=== PATIENT | male | born 1960 | race African-American/Black ===

== ENCOUNTER 2021-04-20 13:29 | Inpatient (IN) | payer MEDICAID ==
[~2021-04-20] VITALS: Ht 175.3 cm; Wt 71.0 kg
[2021-04-20] MEDS ORDERED: SODIUM CHLORIDE 0.9% 1,000 ML IV ONE (14:00)
[2021-04-20] MEDS ORDERED: MORPHINE SULFATE 4 MG/ML CPJ (NOT FOR IM USE) IV ONE (14:30)
[2021-04-20] MEDS ORDERED: ONDANSETRON HCL 4MG/2ML INJ IV ONE (14:30)
[2021-04-20 14:33] LABS: BASOPHILS % 0.4 % (0.0-2.0); EOSINOPHILS % 1.2 % (0.0-5.0); HEMATOCRIT. 27.1 % (42.0-52.0); HEMOGLOBIN. 9.3 g/dL (14.0-18.0); LYMPHOCYTES % 25.2 % (20.0-50.0); MEAN CORPUSCULAR HEMOGLOBIN 27.7 pg (28.0-32.0); MEAN CORPUSCULAR VOLUME 80.8 fL (80.0-94.0); MEAN PLATELET VOLUME 6.4 fl (7.4-10.4); MONOCYTES % 11.4 % (2.0-8.0); NEUTROPHILS % 61.8 % (40.0-76.0); PLATELET 633 x1000/uL (130-400); RED BLOOD CELL COUNT 3.36 mill/uL (4.7-6.1); RED CELL DISTRIBUTION WIDTH 15.5 % (11.6-14.6)
[2021-04-20 14:39] LABS: CHLORIDE 97 mEq/L (98-107)
[2021-04-20] MEDS ORDERED: ASPIRIN 325MG EC TABLET PO ONE (15:45)
[2021-04-20] MEDS ORDERED: MORPHINE SULFATE 2 MG/ML CPJ (NOT FOR IM USE) IV ONE (18:30)
[2021-04-20] MEDS ORDERED: HEPARIN 25,000 UNITS PREMIX 250 ML IV SCH (18:45)
[2021-04-20] MEDS ORDERED: HEPARIN BOLUS PRN aPTT <36 IV (18:45)
[2021-04-20] MEDS ORDERED: HEPARIN BOLUS PRN aPTT 37-44 IV (18:45)
[2021-04-20] MEDS ORDERED: HEPARIN 80 UNITS/KG BOLUS IV NR (19:15)
[2021-04-20] MEDS ORDERED: IOHEXOL-350 100 ML BOTTLE ONE (19:27)
[2021-04-20] MEDS ORDERED: DOCUSATE SODIUM 100MG CAPSULE PO PRN (19:45)
[2021-04-20] MEDS ORDERED: DEXTROSE 50% WATER 50ML SYRINGE IV PRN (19:45)
[2021-04-20] MEDS ORDERED: IPRATROPIUM/ALBUTEROL 0.5-3(2.5)MG/3ML NEB NEB PRN (19:45)
[2021-04-20] MEDS ORDERED: ACETAMINOPHEN 325MG TABLET PO PRN ×2 (19:45)
[2021-04-20] MEDS ORDERED: MAGNESIUM/ALUMINUM HYDROXIDE/SIMETHICONE 30ML UDC PO PRN (19:45)
[2021-04-20] MEDS ORDERED: GUAIFENESIN 200MG/10ML SUGAR FREE UDC PO PRN (19:45)
[2021-04-20] MEDS ORDERED: CLONIDINE 0.1MG TABLET PO PRN (19:45)
[2021-04-20 19:51] LABS: INR 1.1; PROTHROMBIN TIME 11.8 sec (9.6-11.0)
[2021-04-20 20:08] LABS: TOTAL IRON BINDING CAPACITY 205 ug/dL (250-450)
[2021-04-20] MEDS: ENOXAPARIN 80MG/0.8ML SYR SUBCUT SCH ×2 (20:33→21:00)
[2021-04-20] MEDS ORDERED: KETOROLAC 15MG/ML VIAL IV PRN (20:45)
[2021-04-20] MEDS ORDERED: LEVOFLOXACIN 750MG PREMIX 150 ML IV SCH (21:00)
[2021-04-20] MEDS: INSULIN LISPRO 100 UNITS/ML SUBCUT SCH (21:00)
[2021-04-20] MEDS: BLOOD SUGAR DIAGNOSTIC STRIP TEST SCH (21:54)
[2021-04-20 22:21] LABS: CREATINE KINASE MB FRACTION 2.4 ng/mL (0.5-3.6)
[2021-04-20 23:15] VITALS: BP 111/71
[2021-04-20] MEDS: METHYLPREDNISOLONE SOD SUCC 125 MG/2 ML VIAL IV SCH (23:49)
[2021-04-20 23:50] VITALS: BP 109/66
[2021-04-21] VITALS (12 sets, daily range): BP systolic 116–143; BP diastolic 71–86
[2021-04-21] MEDS: TRAMADOL 50MG TABLET PO PRN ×2 (04:38→17:59)
[2021-04-21] MEDS: BLOOD SUGAR DIAGNOSTIC STRIP TEST SCH ×4 (06:07→21:54)
[2021-04-21] MEDS: METHYLPREDNISOLONE SOD SUCC 125 MG/2 ML VIAL IV SCH ×3 (06:15→22:01)
[2021-04-21 07:12] LABS: BASOPHILS % 0.2 % (0.0-2.0); HEMATOCRIT. 26.8 % (42.0-52.0); LYMPHOCYTES % 9.8 % (20.0-50.0); MEAN CORPUSCULAR HEMOGLOBIN 27.1 pg (28.0-32.0); MEAN CORPUSCULAR VOLUME 81.3 fL (80.0-94.0); MEAN PLATELET VOLUME 6.6 fl (7.4-10.4); PLATELET 639 x1000/uL (130-400); RED CELL DISTRIBUTION WIDTH 15.3 % (11.6-14.6)
[2021-04-21 07:15] LABS: CHLORIDE 98 mEq/L (98-107)
[2021-04-21 07:22] LABS: PHOSPHORUS 3.1 mg/dL (2.5-4.9)
[2021-04-21 07:24] LABS: CREATINE KINASE 32 IU/L (39-308)
[2021-04-21 07:27] LABS: CREATINE KINASE MB FRACTION 1.6 ng/mL (0.5-3.6)
[2021-04-21 08:22] LABS: METHADONE URINE SCREEN NEGATIVE (NEGATIVE); OPIATES URINE SCREEN PRESUMTIVE POSITIVE (NEGATIVE)
[2021-04-21 08:23] LABS: *AMPHETAMINES SCREEN URINE NEGATIVE (NEGATIVE); *BARBITURATES SCREEN URINE NEGATIVE (NEGATIVE); *BENZODIAZEPINES SCREEN URINE NEGATIVE (NEGATIVE); *COCAINE SCREEN URINE NEGATIVE (NEGATIVE); CANNABINOID URINE SCREEN NEGATIVE (NEGATIVE); PHENCYCLIDINE URINE SCREEN NEGATIVE (NEGATIVE)
[2021-04-21] MEDS: INSULIN LISPRO 100 UNITS/ML SUBCUT SCH ×4 (10:12→22:07)
[2021-04-21] MEDS: ENOXAPARIN 80MG/0.8ML SYR SUBCUT SCH ×2 (10:12→22:02)
[2021-04-21] MEDS ORDERED: MAGNESIUM 2 G PREMIX 50 ML IV NR (11:00)
[2021-04-21] MEDS ORDERED: MORPHINE SULFATE 2 MG/ML CPJ (NOT FOR IM USE) IV NR (11:15)
[2021-04-21] MEDS ORDERED: NALOXONE HCL 0.4MG/ML VIAL IV PRN (13:30)
[2021-04-21] MEDS ORDERED: PAMIDRONATE DISODIUM 60 MG in SODIUM CHLORIDE 0.9% 500 ML IV NR (15:00)
[2021-04-21] MEDS ORDERED: LEVOFLOXACIN 750MG PREMIX 150 ML IV SCH (18:00)
[2021-04-21] MEDS: MORPHINE SULFATE 2 MG/ML CPJ (NOT FOR IM USE) IV PRN ×2 (19:45→23:50)
[2021-04-21] MEDS: IPRATROPIUM/ALBUTEROL 0.5-3(2.5)MG/3ML NEB HHN SCH (21:16)
[2021-04-21] MEDS: LEVOFLOXACIN 750MG PREMIX 150 ML IV SCH (22:01)
[2021-04-22] VITALS (11 sets, daily range): BP systolic 125–172; BP diastolic 71–99
[2021-04-22] MEDS: IPRATROPIUM/ALBUTEROL 0.5-3(2.5)MG/3ML NEB HHN SCH ×4 (00:54→20:25)
[2021-04-22] MEDS: MORPHINE SULFATE 2 MG/ML CPJ (NOT FOR IM USE) IV PRN ×5 (03:56→20:29)
[2021-04-22 06:22] LABS: CHLORIDE 96 mEq/L (98-107)
[2021-04-22 06:26] LABS: BASOPHILS % 0.1 % (0.0-2.0); HEMOGLOBIN. 9.4 g/dL (14.0-18.0); LYMPHOCYTES % 8.8 % (20.0-50.0); MEAN CORPUSCULAR HEMOGLOBIN 27.4 pg (28.0-32.0); MEAN CORPUSCULAR VOLUME 81.8 fL (80.0-94.0); MEAN PLATELET VOLUME 6.7 fl (7.4-10.4); MONOCYTES % 5.2 % (2.0-8.0); NEUTROPHILS % 85.9 % (40.0-76.0); PLATELET 612 x1000/uL (130-400); RED BLOOD CELL COUNT 3.42 mill/uL (4.7-6.1); RED CELL DISTRIBUTION WIDTH 15.7 % (11.6-14.6)
[2021-04-22] MEDS: BLOOD SUGAR DIAGNOSTIC STRIP TEST SCH ×4 (06:27→20:23)
[2021-04-22] MEDS: METHYLPREDNISOLONE SOD SUCC 125 MG/2 ML VIAL IV SCH ×3 (06:27→22:19)
[2021-04-22] MEDS: INSULIN LISPRO 100 UNITS/ML SUBCUT SCH ×4 (08:33→20:28)
[2021-04-22] MEDS: ENOXAPARIN 80MG/0.8ML SYR SUBCUT SCH ×2 (08:43→20:29)
[2021-04-22] MEDS ORDERED: FOLIC ACID 1 MG in SODIUM CHLORIDE 0.9% 500 ML IV SCH (15:00)
[2021-04-22] MEDS ORDERED: ZOLPIDEM TARTRATE 5MG TABLET PO PRN (21:00)
[2021-04-22] MEDS ORDERED: MORPHINE SULFATE 2 MG/ML CPJ (NOT FOR IM USE) IV PRN (21:00)
[2021-04-22] MEDS: HYDROMORPHONE HCL/PF 2MG/ML CPJ IV PRN (22:19)
[2021-04-22] MEDS: LEVOFLOXACIN 750MG PREMIX 150 ML IV SCH (23:54)
[2021-04-23] VITALS (12 sets, daily range): BP systolic 114–170; BP diastolic 72–106
[2021-04-23] MEDS: IPRATROPIUM/ALBUTEROL 0.5-3(2.5)MG/3ML NEB HHN SCH ×4 (00:27→21:41)
[2021-04-23] MEDS: MORPHINE SULFATE 4 MG/ML CPJ (NOT FOR IM USE) IV PRN ×2 (01:09→04:20)
[2021-04-23] MEDS: BLOOD SUGAR DIAGNOSTIC STRIP TEST SCH ×4 (06:30→20:37)
[2021-04-23] MEDS: METHYLPREDNISOLONE SOD SUCC 125 MG/2 ML VIAL IV SCH ×3 (06:30→21:44)
[2021-04-23] MEDS: HYDROMORPHONE HCL/PF 2MG/ML CPJ IV PRN ×4 (06:39→20:35)
[2021-04-23] MEDS: ENOXAPARIN 80MG/0.8ML SYR SUBCUT SCH ×2 (08:27→20:37)
[2021-04-23] MEDS: FOLIC ACID 1MG TABLET PO SCH (08:28)
[2021-04-23] MEDS: INSULIN LISPRO 100 UNITS/ML SUBCUT SCH ×4 (08:32→20:41)
[2021-04-23] MEDS: ONDANSETRON HCL 4MG/2ML INJ IV PRN ×2 (10:22→15:58)
[2021-04-23] MEDS: METOPROLOL TARTRATE 25MG TABLET PO SCH ×2 (12:25→20:37)
[2021-04-23] MEDS: LEVOFLOXACIN 750MG PREMIX 150 ML IV SCH (20:37)
[2021-04-24] VITALS (14 sets, daily range): BP systolic 130–169; BP diastolic 57–97
[2021-04-24] MEDS: HYDROMORPHONE HCL/PF 2MG/ML CPJ IV PRN ×5 (01:16→21:29)
[2021-04-24] MEDS: IPRATROPIUM/ALBUTEROL 0.5-3(2.5)MG/3ML NEB HHN SCH ×4 (02:25→21:46)
[2021-04-24] MEDS: METHYLPREDNISOLONE SOD SUCC 125 MG/2 ML VIAL IV SCH ×2 (05:40→13:39)
[2021-04-24] MEDS: BLOOD SUGAR DIAGNOSTIC STRIP TEST SCH ×4 (05:46→21:29)
[2021-04-24 06:45] LABS: HEMATOCRIT. 29.5 % (42.0-52.0); HEMOGLOBIN. 9.9 g/dL (14.0-18.0); MEAN CORPUSCULAR HEMOGLOBIN 27.3 pg (28.0-32.0); MEAN CORPUSCULAR VOLUME 80.9 fL (80.0-94.0); MEAN PLATELET VOLUME 7.1 fl (7.4-10.4); PLATELET 652 x1000/uL (130-400); RED BLOOD CELL COUNT 3.64 mill/uL (4.7-6.1)
[2021-04-24 07:12] LABS: CHLORIDE 104 mEq/L (98-107)
[2021-04-24] MEDS: METOPROLOL TARTRATE 25MG TABLET PO SCH (08:49)
[2021-04-24] MEDS: FOLIC ACID 1MG TABLET PO SCH (08:49)
[2021-04-24] MEDS: ENOXAPARIN 80MG/0.8ML SYR SUBCUT SCH ×2 (08:50→21:27)
[2021-04-24] MEDS: INSULIN LISPRO 100 UNITS/ML SUBCUT SCH ×4 (08:56→21:33)
[2021-04-24] MEDS ORDERED: METOPROLOL TARTRATE 5MG/5ML VIAL IV NR (09:45)
[2021-04-24] MEDS ORDERED: METOPROLOL TARTRATE 25MG TABLET PO NR (10:00)
[2021-04-24] MEDS ORDERED: METOPROLOL TARTRATE 5MG/5ML VIAL IV PRN (10:15)
[2021-04-24 11:18] LABS: PLATELET ESTIMATE MARKEDLY INCREASED
[2021-04-24] MEDS ORDERED: DIGOXIN 500MCG/2ML AMP IV SCH (13:15)
[2021-04-24] MEDS ORDERED: METOPROLOL TARTRATE 50MG TABLET PO SCH (21:00)
[2021-04-24] MEDS: LEVOFLOXACIN 750MG PREMIX 150 ML IV SCH (21:28)
[2021-04-25] VITALS (10 sets, daily range): BP systolic 101–156; BP diastolic 59–88
[2021-04-25] MEDS: HYDROMORPHONE HCL/PF 2MG/ML CPJ IV PRN ×3 (02:25→14:56)
[2021-04-25] MEDS: IPRATROPIUM/ALBUTEROL 0.5-3(2.5)MG/3ML NEB HHN SCH ×3 (03:05→15:35)
[2021-04-25] MEDS: BLOOD SUGAR DIAGNOSTIC STRIP TEST SCH ×3 (06:55→16:55)
[2021-04-25] MEDS: INSULIN LISPRO 100 UNITS/ML SUBCUT SCH ×2 (06:55→12:04)
[2021-04-25] MEDS: FOLIC ACID 1MG TABLET PO SCH (08:53)
[2021-04-25] MEDS: ENOXAPARIN 80MG/0.8ML SYR SUBCUT SCH (08:56)
[2021-04-25] MEDS ORDERED: METOPROLOL TARTRATE 50MG TABLET PO SCH (09:00)
[2021-04-25] MEDS ORDERED: METHYLPREDNISOLONE SOD SUCC 40 MG/ML VIAL IV SCH (09:00)
[2021-04-25] MEDS ORDERED: HYDR-4009 MT (10:18)
== END 2021-04-25 17:15 | disposition home or self-care (01) | DRG 133 ==
LOC: ER 13:29 → 3WST 18:46 → EDBEDREQSVC 20:12 → EDBEDREQTM 20:12 → ENRESERV 21:42
PROVIDERS: ADMIT Internal Medicine; ATTEND Internal Medicine
DX: J96.01 Acute respiratory failure with hypoxia (principal); I26.99 Other pulmonary embolism without acute cor pulmonale; I28.8 Other diseases of pulmonary vessels; I21.A1 Myocardial infarction type 2; E44.0 Moderate protein-calorie malnutrition; E22.2 Syndrome of inappropriate secretion of antidiuretic hormone; D52.9 Folate deficiency anemia, unspecified; I87.1 Compression of vein; C34.91 Malignant neoplasm of unspecified part of right bronchus or lung; D63.8 Anemia in other chronic diseases classified elsewhere; J44.1 Chronic obstructive pulmonary disease with (acute) exacerbation; I48.0 Paroxysmal atrial fibrillation; D47.3 Essential (hemorrhagic) thrombocythemia; E11.9 Type 2 diabetes mellitus without complications; E83.42 Hypomagnesemia; E78.5 Hyperlipidemia, unspecified; E83.52 Hypercalcemia; F17.210 Nicotine dependence, cigarettes, uncomplicated; I10 Essential (primary) hypertension; I25.10 Atherosclerotic heart disease of native coronary artery without angina pectoris; Z86.73 Personal history of transient ischemic attack (TIA), and cerebral infarction without residual deficits; Z68.23 Body mass index [BMI] 23.0-23.9, adult; Z79.4 Long term (current) use of insulin
CPT/HCPCS: 36415; 71045; 71275; 80048; 80053; 80076; 80305; 82378; 82550; 82553; 82607; 82746; 82962; 83036; 83540; 83550; 83735; 84100; 84484; 85025; 85379; 93005; 93306; 94640; 97162; 99291; J1160; J1170; J1650; J1815; J1885; J1956; J2270; J2405; J2430; J2920; J2930; J3475; J3490; J7030; J7040; Q9967